=== PATIENT | female | born 1995 | race African-American/Black ===

== ENCOUNTER 2020-10-15 08:24 | Emergency (ER) | payer BC ==
[~2020-10-15] VITALS: Ht 160 cm; Wt 59.0 kg
[2020-10-15 09:44] VITALS: BP 107/68
== END 2020-10-15 09:46 | disposition home or self-care (01) ==
LOC: ER 08:24
DX: S09.90XA Unspecified injury of head, initial encounter (principal); V89.2XXA Person injured in unspecified motor-vehicle accident, traffic, initial encounter; Y93.89 Activity, other specified; Y92.89 Other specified places as the place of occurrence of the external cause; Y99.8 Other external cause status